=== PATIENT | female | born 1955 | race Caucasian/White ===

== ENCOUNTER 2019-02-16 | Emergency (ER) | payer MEDICARE ==
[2019-02-16 20:14] LABS: HEMATOCRIT 42.5 % (37.0-47.0); HEMOGLOBIN 13.1 g/dl (12.0-16.0); IMMATURE GRANULOCYTES 0.6 % (0.0-5.0); MEAN CELL VOLUME 84.8 fL CALC (80.0-100.0); MEAN CORPUSCULAR HGB 26.1 pG CALC (26.0-32.0); MEAN CORPUSCULAR HGB CONC 30.8 g/L CALC (32.0-36.0); NEUT# 10.72 thou/uL (2.00-7.15); RED BLOOD COUNT 5.01 mill/uL (4.20-5.60); RED CELL DISTRI WIDTH 13.6 % (11.5-15.5)
[2019-02-16 20:20] LABS: ALBUMIN 4.1 g/dL (3.2-5.0); ALKALINE PHOSPHATASE 143 u/l (38-126); ANION GAP 13 (6-22 (CALC)); BILIRUBIN, TOTAL 0.3 mg/dL (0.0-1.4); BUN 11 mg/dL (8-23); BUN/CREATININE RATIO 19 (12-20 (CALC)); CARBON DIOXIDE 28 mmol/l (22-30); CHLORIDE 100 mmol/l (95-108); CREATININE 0.6 mg/dL (0.5-1.0); GFR > 60 ML/MIN (>=60 (CALC)); GFR FOR AFR.AMER. > 60 ML/MIN (>=60 (CALC)); POTASSIUM 4.2 mmol/l (3.5-5.1); SGOT/AST 14 u/l (9-36); SODIUM 138 mmol/l (137-146); TOTAL PROTEIN 7.8 g/dL (6.3-8.2)
[2019-02-16] MEDS ORDERED: ZITHROMAX500 MG PO (21:19)
[2019-02-16] MEDS ORDERED: TESSALON PER100 MG PO (21:19)
[2019-02-16] MEDS ORDERED: PROVENTIL0.083 % IN (21:19)
== END 2019-02-16 21:37 | disposition home or self-care (01) ==
DX: J44.9 Chronic obstructive pulmonary disease, unspecified (principal); R60.0 Localized edema; E11.9 Type 2 diabetes mellitus without complications; F17.210 Nicotine dependence, cigarettes, uncomplicated

== ENCOUNTER 2022-03-21 08:26 | Day surgery (SDC) | payer MEDICARE, MEDICAID ==
[~2022-03-21] VITALS: Ht 165.1 cm; Wt 81.6 kg
[~2022-03-21 08:26] MED LIST: ALBUTEROL SUL0.083 % IN; ASPIRIN 81 LOW81 MG PO; GLIMEPIRIDE4 MG PO; JARDIANCE10 MG PO; LASIX 40 MG TAB40 MG PO; LIPITOR10 M1 PO; METRONIDAZOLE0.751 EX; NEURONTIN400 MG PO; OZEMPIC2 MG IJ; POTASSIUM99 MG PO; PROAIR HFA108 MCG/AC; PROVENTIL0.083 % IN; SMZ-TMP1 M1 IV; SPIRIVA IN; SYMBICORT 80-4.5MCG; SYMBICORT1 AE1 IN; TAMSULOSIN HCL0.4 MG PO; TESSALON PER100 MG PO; TRESIBA FL100 UNIT/M; TRESIBA100 UNIT/M; ZITHROMAX500 MG PO
[2022-03-21] MEDS ORDERED: LORTAB5 PO (10:09)
[2022-03-21 13:57] VITALS: BP 137/68
[2022-03-22] MEDS ORDERED: KEFLEX500 MG PO (10:23)
== END 2022-03-21 12:40 | disposition home or self-care (01) ==
LOC: ORM 08:26
PROVIDERS: ATTEND Surgery
PROC: 0WUF0JZ Supplement Abdominal Wall with Synthetic Substitute, Open Approach (ICD-10-PCS; principal; 2022-03-21)
DX: K43.0 Incisional hernia with obstruction, without gangrene (principal); E11.9 Type 2 diabetes mellitus without complications; J44.9 Chronic obstructive pulmonary disease, unspecified; F17.210 Nicotine dependence, cigarettes, uncomplicated; Z79.4 Long term (current) use of insulin
CPT/HCPCS: J0131; J0690